=== PATIENT | female | born 1940 | race Caucasian/White ===

== ENCOUNTER 2017-12-31 20:40 | Emergency (ER) | payer OTHER ==
[~2017-12-31] VITALS: Ht 165.1 cm; Wt 72.6 kg
[2017-12-31] MEDS ORDERED: ARICEPT5 MG (21:16)
== END 2018-01-01 01:07 | disposition home or self-care (01) ==
LOC: ER 20:40
DX: S01.82XA Laceration with foreign body of other part of head, initial encounter (principal); S19.9XXA Unspecified injury of neck, initial encounter; W45.8XXA Other foreign body or object entering through skin, initial encounter; Y93.89 Activity, other specified; Y92.511 Restaurant or cafe as the place of occurrence of the external cause; Y99.8 Other external cause status